=== PATIENT | female | born 1935 | race Caucasian/White ===

== ENCOUNTER 2016-06-07 07:02 | Day surgery (SDC) | payer OTHER ==
[2016-06-07] MEDS ORDERED: ANCEF VIAL 1 GM ONE (07:15)
[2016-06-07] MEDS ORDERED: LR 1000 ML IV 1,000 ML IV ONE (07:15)
[2016-06-07] MEDS ORDERED: DILAUDID INJ ONE (08:10)
[2016-06-07] MEDS: NS 50 ML IV + SPIKE MINIBAG* 100 ML IV ONE ×2 (08:21→08:22)
[2016-06-07] MEDS ORDERED: XYLOCAINE 1 % (PLAIN) ONE (08:27)
[2016-06-07] MEDS ORDERED: MARCAINE 0.25% WITH EPI IJ ONE (08:28)
[2016-06-07 09:11] LABS: ALANINE AMINOTRANSFERASE 28 Units/L (12-78); ALBUMIN 3.7 g/dL (3.4-5.0); ALKALINE PHOSPHATASE 70 Units/L (46-116); ASPARTATE AMINO TRANSFERASE 20 Units/L (15-37); BLOOD UREA NITROGEN 17 mg/dL (7-18); CALCIUM 9.5 mg/dL (8.5-10.1); CARBON DIOXIDE 29.8 mmol/L (21-32); CHLORIDE 104 mmol/L (98-107); COR NA(FOR HYPERGLY) 143 mmol/L (136-145); CREATININE 0.96 mg/dL (0.55-1.02); GLUCOSE 120 mg/dL (65-99); SODIUM 143 mmol/L (136-145); TOTAL PROTEIN 7.4 g/dL (6.4-8.2); eGFR BLACK RACES > 60 (>60); eGFR NON BLACK RACES 60 (>60)
[2016-06-07] MEDS ORDERED: NS IRRIGATION 3000 ML 3,000 ML IR ONE (09:24)
[2016-06-07] MEDS ORDERED: EPHEDRINE SULFATE INJ ONE (10:16)
[2016-06-07] MEDS ORDERED: PHENERGAN INJ 25 MG IVP PRN (11:07)
[2016-06-07] MEDS ORDERED: REGLAN INJ 10 MG VIAL IVP PRN (11:07)
[2016-06-07] MEDS ORDERED: DILAUDID INJ IVP PRN (11:07)
[2016-06-07] MEDS ORDERED: BENADRYL INJ 50 MG VIAL IVP PRN (11:07)
[2016-06-07] MEDS ORDERED: ZOFRAN INJ 4 MG VIAL IVP PRN (11:07)
[2016-06-07] MEDS ORDERED: ZOFRAN INJ 4 MG VIAL ONE ×2 (11:35→15:31)
[2016-06-07] MEDS ORDERED: REGLAN INJ 10 MG VIAL ONE (11:35)
[2016-06-07] MEDS ORDERED: DYLOJECT INJ ONE ×2 (12:36→15:31)
[2016-06-07] MEDS ORDERED: TORADOL 30 MG VIAL ONE (12:36)
[2016-06-07] MEDS ORDERED: BICITRA 30 ML PO ONE (12:41)
[2016-06-07 14:19] VITALS: BP 195/89
[2016-06-07] MEDS ORDERED: QUELICIN (OR ANECTINE) ONE (15:31)
[2016-06-07] MEDS ORDERED: VERSED ONE (15:31)
[2016-06-07] MEDS ORDERED: DIPRIVAN VIAL ONE (15:31)
[2016-06-07] MEDS ORDERED: NORCURON INJ 10 MG VIAL ONE (15:31)
[2016-06-07] MEDS ORDERED: ROBINUL ONE (15:31)
[2016-06-07] MEDS ORDERED: NEOSTIGMINE INJ ONE (15:31)
[2016-06-07] MEDS ORDERED: ULTANE GAS IN ONE (15:31)
== END 2016-06-07 14:14 | disposition home or self-care (01) ==
LOC: SURG1 07:02
PROVIDERS: ATTEND Student in an Organized Health Care Education/Training Program
PROC: 0FT44ZZ Resection of Gallbladder, Percutaneous Endoscopic Approach (ICD-10-PCS; principal; 2016-06-07 10:00)
DX: K81.1 Chronic cholecystitis (principal); K80.80 Other cholelithiasis without obstruction; Z01.810 Encounter for preprocedural cardiovascular examination
CPT/HCPCS: 36415; 80053; 93005; 93010; 99100; A4216; A4222; S0020; J0330; J0690; J1170; J1885; J2001; J2250; J2405; J2710; J2765; J3490; J7120